=== PATIENT | male | born 1970 | race Caucasian/White ===

== ENCOUNTER 2017-07-25 19:37 | Observation (INO) ==
[2017-07-25] MEDS ORDERED: Nitroglycerin 0.4 MG TAB.SUBL SL ONE (19:52)
[2017-07-25] MEDS ORDERED: Aspirin 81 MG TAB.CHEW PO ONE (19:52)
--- NOTE | 2017-07-25 19:52 | Emergency Department Note ---
Disposition Clinical Impression: Chest pain Disposition: Home, Self-Care Condition: Good Instructions: Chest Pain (ED) Reasons to Return/Additional Instructions: Please return to the emergency department for any worsening symptoms including chest pain, shortness of breath, dizziness, passing out. Please closely follow up tomorrow morning with your primary care physician for follow-up for outpatient cardiology workup. Please take a baby aspirin daily. Please speak with your primary care physician about your high blood pressure. Referrals: Shashank Patricio Jr, MD [Primary Care Provider] - Forms: ED Satisfaction Letter General Adult HPI - General Chief complaint: ED Chest Pain Stated complaint: high bp chest pain Time Seen by Provider: 07/25/17 19:45 Source: patient Limitations: no limitations - History of Present Illness Pain Scale: 3 - Related Data Allergies Allergy/AdvReac Type Severity Reaction Status Date / Time No Known Allergies Allergy Verified 07/25/17 19:55 Past Medical History - Past Medical History Medical history: Reports: no medical history - Social History Smoking Status: Never smoker Smokeless Tobacco Status: Yes Alcohol use: Reports: rarely Drug use: Reports: none Physical Exam - General Limitations: no limitations General appearance: alert, in no apparent distress Course Vital Signs Temperature 98.1 F 07/25/17 19:42 Pulse Rate 137 07/25/17 19:42 Respiratory Rate 16 07/25/17 19:42 Blood Pressure 191/107 07/25/17 19:42 O2 Sat by Pulse Oximetry 98 07/25/17 19:42 Temperature 98.1 F 07/25/17 19:42 Pulse Rate 78 07/25/17 21:13 Respiratory Rate 18 07/25/17 21:13 Blood Pressure 157/117 07/25/17 21:13 O2 Sat by Pulse Oximetry 97 07/25/17 21:13 Oxygen Delivery Oxygen Delivery Room Air Medical Decision Making - Lab Data Result diagrams: 07/25/17 20:26 07/25/17 20:26 Lab Results 07/25/17 07/25/17 07/25/17 Range/Units 20:26 20:26 20:26 WBC 9.1 (4.3-11.1) K/mcL RBC 4.77 (4.19-5.50) M/mcL Hgb 14.3 (12.9-16.9) g/dL Hct 42.5 (37.5-50.1) % MCV 89.1 (83.0-100.0) fL MCH 30.0 (28.0-33.3) pg MCHC 33.6 (31.6-35.5) g/dL RDW 12.7 (11.5-14.5) % Plt Count 290 (140-400) K/mcL MPV 9.2 L (9.4-12.4) fL Immature Gran % 0.2 (0-4) % Seg Neutrophils % 65.4 % Lymphocytes % 21.9 % Monocytes % 6.6 % Eosinophils % 5.2 % Basophils % 0.7 % Neutrophils # 5.9 (1.6-8.9) K/mcL Lymphocytes # 2.0 (0.6-4.6) K/mcL Monocytes # 0.6 (0.0-1.3) K/mcL Eosinophils # 0.5 (0.0-0.6) K/mcL Basophils # 0.1 (0.0-0.2) K/mcL PT 10.3 (9.4-12.1) Seconds INR 1.0 D-Dimer 229 (0-500) ng/mLFEU Sodium 139 (136-145) mEq/L Potassium 3.7 (3.5-4.5) mEq/L Chloride 104 (98-109) mEq/L Carbon Dioxide 23 (19-29) mEq/L BUN 15 (8-26) mg/dL Creatinine 0.94 (0.72-1.25) mg/dL Est GFR ( Amer) > 60 (> 60) Est GFR (Non-Af Amer) > 60 (> 60) BUN/Creatinine Ratio 16 (6-26) Glucose 94 (70-99) mg/dL Calculated Osmolality 289 (280-300) Calcium 9.3 (8.6-10.8) mg/dL Troponin I (0-0.03) ng/mL 07/25/17 Range/Units 20:26 WBC (4.3-11.1) K/mcL RBC (4.19-5.50) M/mcL Hgb (12.9-16.9) g/dL Hct (37.5-50.1) % MCV (83.0-100.0) fL MCH (28.0-33.3) pg MCHC (31.6-35.5) g/dL RDW (11.5-14.5) % Plt Count (140-400) K/mcL MPV (9.4-12.4) fL Immature Gran % (0-4) % Seg Neutrophils % % Lymphocytes % % Monocytes % % Eosinophils % % Basophils % % Neutrophils # (1.6-8.9) K/mcL Lymphocytes # (0.6-4.6) K/mcL Monocytes # (0.0-1.3) K/mcL Eosinophils # (0.0-0.6) K/mcL Basophils # (0.0-0.2) K/mcL PT (9.4-12.1) Seconds INR D-Dimer (0-500) ng/mLFEU Sodium (136-145) mEq/L Potassium (3.5-4.5) mEq/L Chloride (98-109) mEq/L Carbon Dioxide (19-29) mEq/L BUN (8-26) mg/dL Creatinine (0.72-1.25) mg/dL Est GFR ( Amer) (> 60) Est GFR (Non-Af Amer) (> 60) BUN/Creatinine Ratio (6-26) Glucose (70-99) mg/dL Calculated Osmolality (280-300) Calcium (8.6-10.8) mg/dL Troponin I 0.01 (0-0.03) ng/mL Attestation Statement - Attestation Attestation: I examined this patient and my medical decision-making was reviewed with the Resident Physician. I agree with the documented findings, disposition and treatment plan as described except to the extent set forth below. [id number] time provided Patient presents complaining of intermittent chest discomfort and dyspnea for the past one month. Chest pain nonexertional. He is hypertensive and tachycardic upon arrival. Previously healthy and takes no medications. Plan of care and management discussed by me with the resident physician 21:00: Patient was advised and offered admission for telemetry, serial cardiac enzymes, possible cardiology consultation, possible provocative testing. He declines. He states he wants to go home. He seems capable of understanding the risks of going home tonight including arrhythmia, myocardial infarction, permanent disability, . He understands he is hypertensive. He understands the importance of following up closely with his outpatient PCP. He verbalized understanding the importance of returning to the emergency department for further evaluation should he change his mind. His significant other was at bedside during this discussion. I did recommend that he take an aspirin by mouth once daily until otherwise instructed. 21:15: He later changed his mind and agreed to be admitted
--- NOTE | 2017-07-25 19:56 | Emergency Department Note ---
Disposition Clinical Impression: Chest pain Qualifiers: Chest pain type: other chest pain Qualified Code(s): R07.89 - Other chest pain ; R07.8 - Other chest pain Hypertension Qualifiers: Hypertension type: unspecified Qualified Code(s): I10 - Essential (primary) hypertension Disposition: Admitted As Inpatient Condition: Good Instructions: Chest Pain (ED) Reasons to Return/Additional Instructions: Please return to the emergency department for any worsening symptoms including chest pain, shortness of breath, dizziness, passing out. Please closely follow up tomorrow morning with your primary care physician for follow-up for outpatient cardiology workup. Please take a baby aspirin daily. Please speak with your primary care physician about your high blood pressure. Referrals: Shashank Patricio Jr, MD [Primary Care Provider] - Forms: ED Satisfaction Letter Time of Disposition: 21:09 Chest Pain HPI - General Chief Complaint: ED Chest Pain Stated Complaint: high bp chest pain Time Seen by Provider: 07/25/17 19:45 Source: patient Mode of arrival: ambulatory Limitations: no limitations Vital Signs Reviewed: Yes Nursing Notes Reviewed: Yes - History of Present Illness HPI Narrative: 47-year-old male presenting to the emergency department complaining of chest pain. Patient states for the past month he has had intermittent chest pain that is nonexertional. He has not tried anything at home and has not followed up with a physician. He states today he started getting pressure and sharp pains in his substernal area. It does not radiate. He denies nausea vomiting or diaphoresis. He is hypertensive on exam. He denies any significant past medical history. He does state he has significant family history with brother having open heart surgery at age 42. Patient does not follow cardiology. Denies any cardiac history. Denies being on any anticoagulation. Patient denies any recent long trips or immobilization, denies being on hormonal replacement, denies any history of blood clots. Severity scale (1-10): 3 - Related Data Allergies Allergy/AdvReac Type Severity Reaction Status Date / Time No Known Allergies Allergy Verified 07/25/17 19:55 All systems ED: reviewed and negative except as stated. Constitutional: Denies: fever, chills, weakness Eyes: Reports: as per HPI ENT ED: Reports: as per HPI Cardiovascular: Reports: chest pain. Denies: palpitations, dyspnea on exertion Respiratory: Reports: dyspnea. Denies: cough, wheezes, hemoptysis Gastrointestinal: Denies: abdominal pain, nausea, vomiting Genitourinary: Reports: as per HPI Musculoskeletal: Reports: as per HPI Integumentary: Reports: as per HPI Neurological: Denies: weakness, numbness, paresthesias Psychiatric: Reports: as per HPI Endocrine: Reports: as per HPI Hematological/Lymphatic: Reports: as per HPI Allergic/Immunologic: Reports: as per HPI Chest Pain PMH - Past Medical History Medical history: Reports: no medical history - Social History Smoking Status: Never smoker Alcohol use: Reports: rarely Drug use: Reports: none Physical Exam - General Limitations: no limitations General appearance: alert, in no apparent distress - Head Head exam: atraumatic, normocephalic, normal inspection - Eye Eye exam: Present: normal appearance. Absent: scleral icterus, conjunctival injection - Chest Chest inspection: Present: normal inspection, symmetric chest wall rise. Absent : tenderness, rash - Respiratory Respiratory exam: Present: normal lung sounds bilaterally. Absent: respiratory distress, wheezes - Cardiovascular Cardiovascular exam: Present: normal rhythm, tachycardia, normal heart sounds - Abdominal Exam Abdominal exam: Present: soft, Non-Tender. Absent: distention, guarding, rebound - Extremities Exam Extremities exam: Present: normal inspection, full ROM - Neurological Exam Neurological exam: Present: alert, oriented X3 - Psychiatric Psychiatric exam: Present: normal affect, normal mood - Skin Skin exam: Present: warm, intact Course Course Narrative: 47-year-old male presenting to the emergency department complaining of chest pain. EKG no signs of ischemia. Patient is hypertensive and tachycardic in the room. Patient still complaining of chest pain at this time. We will complete testing along with a d-dimer. We will provide a nitroglycerin trial at this time. Patient's alert and oriented 3 in the room and agrees with this plan. - Reevaluation(s) Reevaluation #1: All laboratory tests have come back within normal limits. I spoke with the patient about wanting to have him admitted to the hospital he states he does not want to stay overnight and now says there is any other options. I spoke with the patient along with my attending Dr. Urias and we agreed to have the patient be discharged with a baby aspirin a day and close follow-up with his primary care physician. Patient's alert and oriented 3 in the room with stable vital signs at this time. We will discharge the patient home with very strict return precautions. Time: 21:08 Vital Signs Temperature 98.1 F 07/25/17 19:42 Pulse Rate 137 07/25/17 19:42 Respiratory Rate 16 07/25/17 19:42 Blood Pressure 191/107 07/25/17 19:42 O2 Sat by Pulse Oximetry 98 07/25/17 19:42 Temperature 98.1 F 07/25/17 19:42 Pulse Rate 74 07/25/17 21:25 Respiratory Rate 18 07/25/17 21:25 Blood Pressure 163/114 07/25/17 21:25 O2 Sat by Pulse Oximetry 96 07/25/17 21:25 Oxygen Delivery Oxygen Delivery Room Air Chest Pain - Lab Data Result diagrams: 07/25/17 20:26 07/25/17 20:26 Lab Results 07/25/17 07/25/17 07/25/17 Range/Units 20:26 20:26 20:26 WBC 9.1 (4.3-11.1) K/mcL RBC 4.77 (4.19-5.50) M/mcL Hgb 14.3 (12.9-16.9) g/dL Hct 42.5 (37.5-50.1) % MCV 89.1 (83.0-100.0) fL MCH 30.0 (28.0-33.3) pg MCHC 33.6 (31.6-35.5) g/dL RDW 12.7 (11.5-14.5) % Plt Count 290 (140-400) K/mcL MPV 9.2 L (9.4-12.4) fL Immature Gran % 0.2 (0-4) % Seg Neutrophils % 65.4 % Lymphocytes % 21.9 % Monocytes % 6.6 % Eosinophils % 5.2 % Basophils % 0.7 % Neutrophils # 5.9 (1.6-8.9) K/mcL Lymphocytes # 2.0 (0.6-4.6) K/mcL Monocytes # 0.6 (0.0-1.3) K/mcL Eosinophils # 0.5 (0.0-0.6) K/mcL Basophils # 0.1 (0.0-0.2) K/mcL PT 10.3 (9.4-12.1) Seconds INR 1.0 D-Dimer 229 (0-500) ng/mLFEU Sodium 139 (136-145) mEq/L Potassium 3.7 (3.5-4.5) mEq/L Chloride 104 (98-109) mEq/L Carbon Dioxide 23 (19-29) mEq/L BUN 15 (8-26) mg/dL Creatinine 0.94 (0.72-1.25) mg/dL Est GFR ( Amer) > 60 (> 60) Est GFR (Non-Af Amer) > 60 (> 60) BUN/Creatinine Ratio 16 (6-26) Glucose 94 (70-99) mg/dL Calculated Osmolality 289 (280-300) Calcium 9.3 (8.6-10.8) mg/dL Troponin I (0-0.03) ng/mL 07/25/17 Range/Units 20:26 WBC (4.3-11.1) K/mcL RBC (4.19-5.50) M/mcL Hgb (12.9-16.9) g/dL Hct (37.5-50.1) % MCV (83.0-100.0) fL MCH (28.0-33.3) pg MCHC (31.6-35.5) g/dL RDW (11.5-14.5) % Plt Count (140-400) K/mcL MPV (9.4-12.4) fL Immature Gran % (0-4) % Seg Neutrophils % % Lymphocytes % % Monocytes % % Eosinophils % % Basophils % % Neutrophils # (1.6-8.9) K/mcL Lymphocytes # (0.6-4.6) K/mcL Monocytes # (0.0-1.3) K/mcL Eosinophils # (0.0-0.6) K/mcL Basophils # (0.0-0.2) K/mcL PT (9.4-12.1) Seconds INR D-Dimer (0-500) ng/mLFEU Sodium (136-145) mEq/L Potassium (3.5-4.5) mEq/L Chloride (98-109) mEq/L Carbon Dioxide (19-29) mEq/L BUN (8-26) mg/dL Creatinine (0.72-1.25) mg/dL Est GFR ( Amer) (> 60) Est GFR (Non-Af Amer) (> 60) BUN/Creatinine Ratio (6-26) Glucose (70-99) mg/dL Calculated Osmolality (280-300) Calcium (8.6-10.8) mg/dL Troponin I 0.01 (0-0.03) ng/mL - EKG Data EKG attestation: Yes I reviewed and interpreted this EKG. EKG results narrative: Sinus rhythm. 72 bpm. Normal axis. MA interval 165, QRS 94, QTc 386. No signs of acute ST segment elevation or ischemia. Heart Score - Score History: Slightly Suspicious EKG: Normal Age: 45-65 Risk Factors: 1-2 risk factors
[2017-07-25 20:34] LABS: Basophils # 0.1 K/mcL (0.0-0.2); Basophils % 0.7 %; Eosinophils # 0.5 K/mcL (0.0-0.6); Eosinophils % 5.2 %; Hematocrit 42.5 % (37.5-50.1); Hemoglobin 14.3 g/dL (12.9-16.9); Immature Granulocytes % 0.2 % (0-4); Lymphocytes % 21.9 %; Mean Corpuscular HGB Conc 33.6 g/dL (31.6-35.5); Mean Corpuscular Volume 89.1 fL (83.0-100.0); Mean Platelet Volume 9.2 fL (9.4-12.4); Monocytes # 0.6 K/mcL (0.0-1.3); Monocytes % 6.6 %; Neutrophils # 5.9 K/mcL (1.6-8.9); Platelet Count 290 K/mcL (140-400); Red Blood Count 4.77 M/mcL (4.19-5.50); Red Cell Distribution Width 12.7 % (11.5-14.5); Segmented Neutrophils % 65.4 %
[2017-07-25 20:41] LABS: Prothrombin Time 10.3 Seconds (9.4-12.1)
[2017-07-25 20:47] LABS: BUN/Creatinine Ratio 16 (6-26); Blood Urea Nitrogen 15 mg/dL (8-26); Calcium 9.3 mg/dL (8.6-10.8); Carbon Dioxide 23 mEq/L (19-29); Chloride 104 mEq/L (98-109); Glucose 94 mg/dL (70-99); Osmolality,Calculated 289 (280-300); Potassium 3.7 mEq/L (3.5-4.5); Sodium 139 mEq/L (136-145); eGFR For African Americans > 60 (> 60); eGFR For Non-African Americans > 60 (> 60)
[2017-07-26] MEDS ORDERED: *HR* Morphine 2 MG/ML SYRINGE IVP PRN (04:31)
[2017-07-26] MEDS ORDERED: Naloxone 0.4 MG/ML INJ IVP PRN (04:31)
[2017-07-26] MEDS ORDERED: Acetaminophen 325 MG TABLET PO PRN (04:31)
--- NOTE | 2017-07-26 04:43 | Internal Med History&Physical ---
Date of Encounter: 07/26/17 Time of Encounter: 03:00 Assessment and Plan (1) Chest pain Current visit: Yes Status: Acute 1. Will cycle troponins and EKG's. 2. Keep npo and plan for stress test if troponins negative today. 3. ECHO today to evaluate murmur. 4. Check lipid profile. Qualifiers: Chest pain type: precordial pain Qualified Code(s): R07.2 - Precordial pain (2) DVT prophylaxis Current visit: Yes Status: Acute 1. Heparin SQ. Internal Medicine - H&P: HPI Chief complaint: chest pain Admitted From: Emergency Dept Plans for Post Hospital Care: Home History of present illness: Mr. Torres is a 47 year old male who presents to the ER tonight with complaints of substernal chest pain and pressure for over 12 hours duration. Symptoms started early yesterday morning and awoke him from sleep. Pain and pressure worsened throughout the day and was associated with shortness of breath , diaphoresis, and pain rating to his left shoulder. He therefore came in to the ER where he was given sublingual nitroglycerin with relief of his symptoms. Labs were unremarkable. However, given his chest pain symptoms relieved by nitroglycerin and strong family history, he was admitted for further workup and care. He has a strong family history of premature coronary artery disease. His brother had coronary bypass grafting at the age of 42. Patient is currently chest pain-free and he has no shortness of breath. Past Med Surg Social Fam HX - Past Medical History Attestation: Yes The following information was validated with the patient. Source: patient, old records reviewed Medical history: no medical history Psychiatric history: no psych history - Past Surgical History Surgical History: orthopedic, other - Social History Smoking Status: Never smoker Smokeless Tobacco Status: No Alcohol use: rarely Drug use: none Current living situation: Home Activity Level: Independent ambulation Recent Out of Country Travel Within the Last 8 Weeks: No - Family History Mother Living Status: Still Living Hx Family Cardiac Disorders: Yes Father Living Status: Still Living Hx Family Cardiac Disorders: Yes Brother Living Status: Still Living Hx Family Cardiac Disorders: Yes Internal Medicine - H&P: Meds 3 Allergy/AdvReac Type Severity Reaction Status Date / Time No Known Allergies Allergy Verified 07/25/17 19:55 - Constitutional Constitutional: no chills, no fever(s) - EENT Eyes: no blurry vision, no change in vision Ears: no ear pain, no tinnitus Nose, mouth and throat: no nasal congestion, no sinus pain, no sinus pressure - Cardiovascular Cardiovascular ROS IM: chest pain, diaphoresis, dyspnea, dyspnea on exertion, no lightheadedness, no palpitations, no syncope - Respiratory Respiratory: no cough, no hemoptysis, no chest congestion - Gastrointestinal Gastrointestinal: no abdominal pain, no diarrhea, no hematemesis, no hematochezia, no melena, no vomiting - Genitourinary Genitourinary ROS male: no dysuria, no flank pain, no hematuria - Musculoskeletal Musculoskeletal ROS IM: no arthralgias, no back pain - Integumentary Integumentary IM: no rash, no jaundice - Neurological Neurological ROS: no dizziness, no focal weakness, no frequent falls, no headache(s) - Psychiatric Psychiatric: no anxiety, no depression - Endocrine Endocrine IM: no polydipsia, no polyuria - Hematologic/Lymphatic Hematologic/Lymphatic: no easy bruising, no lymphadenopathy - Allergic/Immunologic Allergic/Immunologic: no GI upset with certain foods - Constitutional Vitals: Temp Pulse Resp BP Pulse Ox 97.8 F 88 20 138/84 98 07/25/17 23:56 07/26/17 02:46 07/25/17 23:56 07/26/17 02:46 07/25/17 23:56 General appearance: Present: cooperative, A&O X 3, pleasant, no acute distress - Head Head exam: Present: atraumatic, normal inspection - Eye Eye exam: Present: EOMI, normal appearance, PERRL. Absent: scleral icterus Pupils: Present: normal accommodation - ENT ENT exam: Present: mucous membranes moist, normal exam - Neck Neck exam general surgery: Present: full ROM, supple. Absent: lymphadenopathy, tenderness, nuchal rigidity - Expanded Neck Exam Neck exam: Absent: carotid bruit - Respiratory Respiratory exam: Present: CTAB. Absent: chest wall tenderness, rales, rhonchi , wheezes - Cardiovascular Cardiovascular exam: Present: RRR, +S1, +S2, systolic murmur (grade 2-3). Absent: diastolic murmur - GI/Abdominal GI/Abdominal exam: Present: normal bowel sounds, soft. Absent: hepatomegaly, splenomegaly, tenderness - Extremities Exam Extremities exam: Present: full ROM, normal capillary refill, warm, radial pulses palpable and symmetrical. Absent: calf tenderness, joint swelling, pedal edema, tenderness - Back Exam Back exam: Present: normal inspection. Absent: CVA tenderness (L), CVA tenderness (R) - Neurological Exam Neurological exam: Present: alert, CN II-XII intact, oriented X3, no focal deficits - Psychiatric Psychiatric exam: Present: normal affect, normal mood - Skin Skin exam: Present: dry, warm. Absent: rash Internal Med - H&P Results - Labs CBC & Chem 7: 07/25/17 20:26 07/25/17 20:26 - EKG Data -: EKG Interpreted by Myself - EKG Data Prior EKG available for review: no EKG comments: 07/26/17 04:46 NSR; no acute changes - Diagnostic Studies Chest x-ray Status: image reviewed by me (negative)
[2017-07-26 05:03] LABS: Basophils # 0.1 K/mcL (0.0-0.2); Basophils % 0.8 %; Eosinophils # 0.6 K/mcL (0.0-0.6); Eosinophils % 7.5 %; Hemoglobin 13.9 g/dL (12.9-16.9); Immature Granulocytes % 0.3 % (0-4); Lymphocytes # 2.1 K/mcL (0.6-4.6); Lymphocytes % 26.9 %; Mean Corpuscular HGB Conc 33.1 g/dL (31.6-35.5); Mean Corpuscular Hemoglobin 29.7 pg (28.0-33.3); Mean Corpuscular Volume 89.7 fL (83.0-100.0); Mean Platelet Volume 9.2 fL (9.4-12.4); Monocytes # 0.7 K/mcL (0.0-1.3); Monocytes % 9.4 %; Neutrophils # 4.3 K/mcL (1.6-8.9); Platelet Count 277 K/mcL (140-400); Red Blood Count 4.68 M/mcL (4.19-5.50); Red Cell Distribution Width 12.8 % (11.5-14.5); Segmented Neutrophils % 55.1 %
[2017-07-26 05:23] LABS: BUN/Creatinine Ratio 16 (6-26); Blood Urea Nitrogen 16 mg/dL (8-26); Calcium 8.9 mg/dL (8.6-10.8); Carbon Dioxide 25 mEq/L (19-29); Chloride 107 mEq/L (98-109); Glucose 102 mg/dL (70-99); Osmolality,Calculated 293 (280-300); Potassium 3.9 mEq/L (3.5-4.5); Sodium 141 mEq/L (136-145); eGFR For African Americans > 60 (> 60); eGFR For Non-African Americans > 60 (> 60)
[2017-07-26] MEDS ORDERED: *HR* Heparin 5,000 UNIT/ML VIAL SQ SCH (06:00)
[2017-07-26 06:43] VITALS: BP 155/88
--- NOTE | 2017-07-26 10:59 | Event Note ---
<Lalo Quiroz - Last Filed: 07/26/17 10:51> Date of Encounter: 07/26/17 Time of Encounter: 10:51 47 male presented with retrosternal chest pain described as constant pressure with intermittent sharp pain. Denies current chest pain. Not associated with exertion, diaphoresis, nausea, or radiation. Reports that he has had intermittent chest pain for the past couple weeks. No personal cardiac history, but brother had CABG at age 42. His PCP prescribed a statin, but he never began taking it. Denies syncope, palpitations, diaphoresis, dyspnea, N/V/D/C, dysuria , or leg pain/edema. EXAM Gen: NAD, A&Ox3 CV: RRR, normal S1 and S2, no murmurs Resp: CTAB, no wheezes, rhonchi, or crackles Abd: soft, non-distended, non-tender. BSx4 Ext: no edema or skin changes A/P Chest Pain - troponins negative x2. No ischemic changes on EKG. Echo pending. Stress test pending. Check lipid panel. Add statin. Continue ASA daily. DVT prophylaxis - SQ heparin <Son Irby - Last Filed: 07/26/17 14:22> Date of Encounter: 07/26/17 Please see discharge summary of today.
[2017-07-26 11:58] LABS: Chol/HDL Ratio 5.1 (0-4.9)
--- NOTE | 2017-07-26 13:09 | Discharge Summary ---
<DillonAlayna - Last Filed: 07/26/17 13:54> Date of Encounter: 07/26/17 Time of Encounter: 12:00 - Discharge Diagnosis (1) Chest pain Priority: Primary Status: Resolved Qualifiers: Chest pain type: precordial pain Qualified Code(s): R07.2 - Precordial pain (2) Hyperlipidemia Priority: Secondary Status: Chronic Qualifiers: Hyperlipidemia type: mixed hyperlipidemia Qualified Code(s): E78.2 - Mixed hyperlipidemia (3) Hypertension Priority: Secondary Status: Chronic Qualifiers: Hypertension type: essential hypertension Qualified Code(s): I10 - Essential (primary) hypertension (4) Family history of early CAD Priority: Secondary Status: Chronic - Discharge Medications Prescriptions: Nitroglycerin 0.4 mg SL Q5MIN PRN #30 tab.subl PRN Reason: Chest Pain Aspirin Enteric Coated [Aspirin EC] 81 mg PO DAILY #30 tablet. Atorvastatin [Lipitor] 40 mg PO HS #30 tablet Metoprolol Succinate 25 mg PO DAILY #30 tab.er.24h Home Medications: Aspirin Enteric Coated [Aspirin EC] 81 mg PO DAILY #30 tablet. 07/26/17 [Rx] Atorvastatin [Lipitor] 40 mg PO HS #30 tablet 07/26/17 [Rx] Metoprolol Succinate 25 mg PO DAILY #30 tab.er.24h 07/26/17 [Rx] Nitroglycerin 0.4 mg SL Q5MIN PRN #30 tab.subl 07/26/17 [Rx] Allergies/Adverse Reactions: 3 Allergy/AdvReac Type Severity Reaction Status Date / Time No Known Allergies Allergy Verified 07/25/17 19:55 Procedures/tests Complete & Pending: Procedures Performed prior 72 hours Category Date Time Status NM roman perf SPECT multi [NM] Routine Exams 07/26/17 04:36 Taken ECG 12 lead ECG [ECG] AM 0600 Y 07/26/17 06:00 Ordered EV echocardiogram Routine Y 07/26/17 04:31 Ordered SP exercise nuclear stress Routine Y 07/26/17 07:15 Completed Date of admission: 07/25/17 21:47 Primary care physician: Shashank Patricio Jr, MD Discharging clinician: Alayna Carranza Anticipated date of discharge: 07/26/17 - Patient Status Disposition: Home, Self-Care Condition: Good Functional capacity at discharge: independent ambulation Overall status at discharge: patient is back to baseline - Ambulatory Orders Ambulatory Orders: EV echocardiogram Time Frame: 1 Week, Facility: [facility], Location: [facility] - Discharge Instructions Instructions: Metoprolol (By mouth), Aspirin (By mouth), Nitroglycerin, Rapid Release (By mouth), Atorvastatin (By mouth), Chest Pain (DC), Chronic Hypertension (DC) Follow Up With: [facility] [Provider Group] (Within 1-2 weeks. Reason for appointment: Episodes of chest pain with significant hyperlipidemia. Also significant famiily history of CAD (brother had CABG at age 42). Their office will call you with appt date & time. ) Shashank Patricio Jr, MD [Primary Care Provider] - 08/02/17 9:45 am (Within a week. You will see Stephanie Youngblood CNP.) Additional Instructions: Please take prescribed aspirin 81 mg by mouth daily, metoprolol succinate 25 mg by mouth daily and atorvastatin 40 mg by mouth at bedtime. You can also use prescribed nitroglycerin 0.4 mg under tongue every 5 minutes as needed for chest pain. Please have ordered echocardiogram done at [facility] within a week. Please follow up with your primary care physician Dr. Patricio within a week regarding your hospitalization. Please follow up with [facility] within 1-2 weeks regarding your chest pain, high cholesterol and family history of heart disease. Please come back to emergency room if you develop symptoms including chest pain , sweating, shortness of breath, lightheadedness. - Diet and Activity Activity: increase activity as tolerated Diet: low fat, low cholesterol, low salt diet Hospital course: Mr. Torres is a 47 year old male without significant PMH who presented to [facility] with complaint of retrosternal chest pain described as constant pressure with intermittent sharp pain. In ED, patient received aspirin and nitroglycerin which helped to alleviate his chest pain. Patient was admitted on 07/26/17 for chest pain work-up and started on atorvastatin. Patient had negative troponin x3. Exercise nuclear stress test on 07/26/17 found gated EF > 70 and negative for ischemia or infarct. Lipid panel showed significant hyperlipidemia with triglycerides 264, cholesterol 314, LDL 199 and HDL 62. Patient also reports significant family history of heart disease with his brother having CABG at age 42. Patient has no chest pain since admission and likes to go home. Echocardiogram was ordered for chest pain and murmur but patient elected to have outpatient echocardiogram instead. Given patient is chest pain-free and remains hemodynamically stable, patient can be discharged home with prescribed aspirin 81 mg by mouth daily, metoprolol succinate 25 mg by mouth daily and atorvastatin 40 mg by mouth at bedtime. Patient can also use prescribed nitroglycerin 0.4 mg under tongue every 5 minutes as needed for chest pain. Patient will have ordered echocardiogram done at [facility] within a week. Patient needs follow up with his primary care physician Dr. Patricio within a week regarding his hospitalization. Patient also needs follow up with [facility] within 1-2 weeks regarding his chest pain, high cholesterol and family history of heart disease. Patient is instructed to come back to emergency room if he develops symptoms including chest pain, sweating, shortness of breath, lightheadedness. Patient expressed his understanding and agreement with the discharge plan. All questions were answered. - Time Spent with Patient Total time spent providing and/or coordinating discharge services: Greater than 30 minutes (46 minutes) - Constitutional Vitals: Temp Pulse Resp BP Pulse Ox 97.9 F 65 15 155/88 96 07/26/17 06:00 07/26/17 06:00 07/26/17 06:00 07/26/17 06:00 07/26/17 06:00 General appearance: Present: cooperative, A&O X 3, pleasant, no acute distress - Head Head exam: Present: atraumatic, normocephalic - Eye Eye exam: Present: EOMI, conjuntiva pink, sclera anicteric - Neck Neck exam general surgery: Present: normal inspection, supple, trachea midline - Respiratory Respiratory exam: Present: CTAB. Absent: accessory muscle use, rales, rhonchi, wheezes - Cardiovascular Cardiovascular exam: Present: RRR, +S1, +S2, systolic murmur (Grade 3) - GI/Abdominal GI/Abdominal exam: Present: normal bowel sounds, soft, no peritoneal signs. Absent: distended, tenderness - Extremities Exam Extremities exam: Present: warm. Absent: cyanotic, pedal edema - Neurological Exam Neurological exam: Present: oriented X3, no focal deficits. Absent: facial droop, speech deficit - Skin Skin exam: Present: dry, intact, warm <Son Irby - Last Filed: 07/26/17 14:43> Date of Encounter: 07/26/17 - Discharge Diagnosis (1) Chest pain Status: Resolved Qualifiers: Chest pain type: precordial pain Qualified Code(s): R07.2 - Precordial pain (2) Hypertension Status: Chronic Qualifiers: Hypertension type: essential hypertension Qualified Code(s): I10 - Essential (primary) hypertension (3) Hyperlipidemia Status: Chronic Qualifiers: Hyperlipidemia type: mixed hyperlipidemia Qualified Code(s): E78.2 - Mixed hyperlipidemia (4) Family history of early CAD Status: Chronic (5) Chewing tobacco nicotine dependence Priority: Secondary Status: Chronic Qualifiers: Substance use status: uncomplicated Qualified Code(s): F17.220 - Nicotine dependence, chewing tobacco, uncomplicated Procedures/tests Complete & Pending: Procedures Performed prior 72 hours Category Date Time Status NM roman perf SPECT multi [NM] Routine Exams 07/26/17 04:36 Taken ECG 12 lead ECG [ECG] AM 0600 Y 07/26/17 06:00 Ordered SP exercise nuclear stress Routine Y 07/26/17 07:15 Completed Date of admission: 07/25/17 21:47 Primary care physician: Shashank Patricio Jr, MD Hospital course: Mr. Torres is a 47 year old male - Time Spent with Patient Total time spent providing and/or coordinating discharge services: - Constitutional Vitals: Temp Pulse Resp BP Pulse Ox 97.9 F 65 15 155/88 96 07/26/17 06:00 07/26/17 06:00 07/26/17 06:00 07/26/17 06:00 07/26/17 06:00 - Attending Attestation I examined this patient and my medical decision-making was reviewed with the Resident Physician on 07/26/17. I agree with the documented findings, disposition and treatment plan as described except to the extent set forth below. Mr Torres was placed in observation due to chest pain. He has significant risk factors due to family history. His cholesterol is markedly elevated. His stress test was negative for ischemia. His echo to be done outpatient. He is afebrile. BP has been elevated and metoprolol started. Exam Alert. Comfortable Heart reg with murmur Lungs clear Abd soft No edema Plan D/C home today Atorvastatin for cholesterol and diet Stop chewing tobacco Metoprolol for BP Echo as outpatient Follow up with PCP and cardiology.
[2017-07-27] MEDS ORDERED: Aspirin Enteric Coated 81 MG Tablet PO SCH (09:00)
--- NOTE | 2017-07-28 05:56 | Electrocardiograph Report ---
[place] [id number] Test Date: 2017-07-25 Pat Name: Carlos Torres Department: 103 Room: 2N8 Gender: M Slot Floorman: SONDRA : 1970 Requested By: Janina Chen Order Number: [id number] Reading MD: Mateus Renee MD Measurements Intervals [place] Rate: 73 P: 27 [place]: 165 QRS: -5 QRSD: 94 T: 18 QT: 360 QTc: 386 Interpretive Statements SINUS RHYTHM BASELINE ARTIFACT Electronically Signed On 07-28-2017 5:54:33 EST by Mateus Renee MD
== END 2017-07-26 14:45 | disposition home or self-care (01) ==
LOC: 2NENU 19:37 → EMEROO 19:37 → 2NENU 22:33
PROVIDERS: ADMIT Pediatrics; ATTEND Internal Medicine